=== PATIENT | male | born 1990 | race Caucasian/White ===

== ENCOUNTER 2024-08-31 18:23 | Emergency (ER) | payer BC, SELFPAY ==
[2024-08-31 18:24] VITALS: BP 150/101
[2024-08-31] MEDS: ZOFRAN 4 MG IV (19:57)
[2024-08-31] MEDS: NSS 1000 IV (19:57)
[2024-08-31 20:00] VITALS: BP 136/87
[2024-08-31 20:04] LABS: % Basophils 0.7 % (0-2); % Eosinophils 0.9 % (0-6); % Immature Granulocytes 0.2 % (0-0.5); % Lymphocytes 35.4 % (20.5-51.1); % Monocytes 7.8 % (1.7-9.3); Absolute Basophils 0.1 10^3/uL (0-0.2); Absolute Eosinophils 0.1 10^3/uL (0-0.7); Absolute Lymphocytes 3.1 10^3/uL (1.2-3.4); Absolute Monocytes 0.7 10^3/uL (0.1-0.6); Absolute Neutrophils 4.8 10^3/uL (1.4-6.5); Hematocrit 49.3 % (39.0-52.0); Hemoglobin 18.1 g/dL (13.0-18.0); Mean Corp Hgb Conc. 36.7 g/dL (33.0-37.0); Mean Corpuscular Hgb 33.5 pg (27.0-31.0); Mean Corpuscular Volume 91.3 fL (80.0-94.0); Mean Platelet Volume 8.4 fL (7.4-10.4); Nucleated Red Blood Cells % 0 % (-); Platelet Count 284 10^3/uL (130-400); Red Cell Dist. Width 12.3 % (11.5-14.5); White Blood Cell Count 8.7 10^3/uL (4.8-10.8)
--- NOTE | 2024-08-31 20:06 | ED.GENMED ---
History of Present Illness
<JERRY Dow - Last Filed: 08/31/24 21:42>
General
Chief Complaint: Abdominal Symptoms
Source: patient
Time Seen by Provider: 08/31/24 18:50
History of Present Illness
History of Present Illness:
This is a 34 y/o M with no significant PMH who presents with nausea, vomiting and diarrhea that began today. He initially presented with his , who is exhibiting similar symptoms. He vomited in the parking lot and was encouraged to also be seen.
They both ate breakfast sandwiches this morning but cannot think of any food that may have triggered this. He denies fevers, sore throat, shortness of breath, chest pain, hematochezia. He denies sick contacts. No recent travel. He smokes daily.
Past History
<JERRY Dow - Last Filed: 08/31/24 21:42>
Past History
ED Past Medical History: Other (Concussion)
ED Past Surgical History: Orthopedic (Jaw surgery, Left knee surgery X 2, Right hand surgery)
Social History
Tobacco: Smoker
Alcohol: Daily (Gin 5 glasses)
Drug: None
Personal:
Living: with family
Review of Systems
<JERRY Dow - Last Filed: 08/31/24 21:42>
Review of Systems
Constitutional: Reports no symptoms
EENT: Reports no symptoms
Respiratory: Reports no symptoms
Cardiac: Reports no symptoms
ABD/GI: Reports abdominal pain, nausea, vomiting and diarrhea
: Reports no symptoms
Musculoskeletal: Reports no symptoms
Skin: Reports no symptoms
Neurological: Reports no symptoms
Phy Exam
<JERRY Dow - Last Filed: 08/31/24 21:42>
General Physical Exam
General Presentation: well appearing and no apparent distress
General age: appears stated age
General Skin: warm and flushed
General Habitus: normal
General Mental: alert
Cardiovascular Exam
Cardiovascular Exam: regular rate/rhythm
Pulmonary Exam
Pulmonary Exam: lungs clear
Gastrointestinal Exam
Gastrointestinal Exam: normal bowel sounds, soft, non distended and tender (tender to palpitation in LUQ)
Palpation: left upper quadrant: Mild tenderness
<Usman Mayen DO - Last Filed: 08/31/24 22:41>
Physical Exam
Physical Exam:
Physical Exam
General: Nontoxic male vomiting
Neck: No jaundice
Heart: s1/s2 regular rate and rhythm, no murmur. equal radial pulses.
Lungs: no acute respiratory distress. clear bilaterally
Abdomen: Nontender
Neuro: alert and oriented. no focal neurological deficits
Skin: no rash
Psychiatric: well kept. interactive and cooperative
Extremities: no edema.
Course
<Renee Manrique STPA - Last Filed: 08/31/24 21:42>
Orders/Labs/Results
Orders:
Orders
08/31/24 19:38
IV Insert/Care/Rem.- Treatment PRN
0.9% Sodium Chloride 1000 ml [Nss] 1,000 ml IV BOLUS
0.9% Sodium Chloride 1000 ml [Nss] 1,000 ml IV BOLUS
Ondansetron Injectable [Zofran] 4 mg IV NOW STA
08/31/24 19:39
Ondansetron Injectable [Zofran] 4 mg .ROUTE .STK-MED ONE
08/31/24 19:57
Complete Blood Count/With Diff Urgent
Comprehensive Metabolic Panel Urgent
Lipase Urgent
Abnormal Lab Results
08/31/24
19:57
Hgb 18.1 H g/dL
(13.0-18.0)
MCH 33.5 H pg
(27.0-31.0)
Absolute Monos (auto) 0.7 H 10^3/uL
(0.1-0.6)
Total Bilirubin 1.6 H mg/dl
(0.2-1.3)
08/31/24 19:57
08/31/24 19:57
Vital Signs
Initial and Last Documented VS:
Initial Vital Signs
Temp Pulse Resp BP Pulse Ox
98.0 F 92 20 150/101 99
08/31/24 18:24 08/31/24 18:24 08/31/24 18:24 08/31/24 18:24 08/31/24 18:24
Last Documented Vital Signs
Temp Pulse Resp BP Pulse Ox
98.0 F 82 16 112/73 98
08/31/24 18:24 08/31/24 21:51 08/31/24 21:51 08/31/24 21:51 08/31/24 21:51
<Usman Mayen, DO - Last Filed: 08/31/24 22:41>
Orders/Labs/Results
Orders:
Orders
08/31/24 19:38
IV Insert/Care/Rem.- Treatment PRN
0.9% Sodium Chloride 1000 ml [Nss] 1,000 ml IV BOLUS
0.9% Sodium Chloride 1000 ml [Nss] 1,000 ml IV BOLUS
Ondansetron Injectable [Zofran] 4 mg IV NOW STA
08/31/24 19:39
Ondansetron Injectable [Zofran] 4 mg .ROUTE .STK-MED ONE
08/31/24 19:57
Complete Blood Count/With Diff Urgent
Comprehensive Metabolic Panel Urgent
Lipase Urgent
Abnormal Lab Results
08/31/24
19:57
Hgb 18.1 H g/dL
(13.0-18.0)
MCH 33.5 H pg
(27.0-31.0)
Absolute Monos (auto) 0.7 H 10^3/uL
(0.1-0.6)
Total Bilirubin 1.6 H mg/dl
(0.2-1.3)
08/31/24 19:57
08/31/24 19:57
Vital Signs
Initial and Last Documented VS:
Initial Vital Signs
Temp Pulse Resp BP Pulse Ox
98.0 F 92 20 150/101 99
08/31/24 18:24 08/31/24 18:24 08/31/24 18:24 08/31/24 18:24 08/31/24 18:24
Last Documented Vital Signs
Temp Pulse Resp BP Pulse Ox
98.0 F 82 16 112/73 98
08/31/24 18:24 08/31/24 21:51 08/31/24 21:51 08/31/24 21:51 08/31/24 21:51
<JERRY Dow - Last Filed: 08/31/24 21:42>
MDM/Problems Addressed
MDM/Problems Addressed:
This is a 34 y/o M with no significant PMH who presents with nausea, vomiting and diarrhea that began today. His has similar symptoms. No recent travel or sick contacts. After IV fluids and zofran patient states he is feeling better. Reassesed
the patient, he remains afebrile and hemodynamically stable. Abdomen soft and nontender. Able to tolerate PO liquids.
<Usman Mayen DO - Last Filed: 08/31/24 22:41>
MDM/Problems Addressed
Differential Diagnosis Includes:
Enteritis viral syndrome
<Usman Mayen DO - Last Filed: 08/31/24 22:41>
*Pulse Oximetry
Patient hypoxic: no
Comment: 99
*Critical Care Note
Total Time (30-74mins, 75-104mins- exclusive of procedures): Not Applicable
ED Attending Note
<JERRY Dow - Last Filed: 08/31/24 21:42>
-
Portions of this chart may have been created with voice recognition software.� Occasional wrong word or��sound alike� substitutions may have occurred due to the inherent limitations of voice recognition software.
<Usman Mayen DO - Last Filed: 08/31/24 22:41>
ED Attending Note
I performed a history and physical exam of patient and discussed management with resident, I reviewed resident's note and agree with documented findings and plan of care.: Yes
ED Attending Note:
Seen with student examined independently, 34-year-old male limited past medical history does drink and smoke he and his are here this evening with nausea vomiting diarrhea, vomiting here nontender abdomen, plan will be IV fluids antiemetics
screening blood work, serial abdominal exams
Discharge Plan
Departure
Patient Disposition: Home (Routine Discharge)
Date of Disposition: 08/31/24
Time of Disposition: 21:32
Patient with high blood pressure during this ER visit?: No
Condition: Good
Covid-19: Not Applicable
Discharge Problem:
Acute dehydration
Instructions: Diarrhea in teens and adults, Dehydration, Adult (DC), Nausea and Vomiting, Adult (DC)
Prescriptions:
New
ondansetron 4 mg tablet,disintegrating
4 mg PO Q8H PRN (Reason: nausea and vomiting) Qty: 14 0RF
No Action
pantoprazole [Protonix] 40 mg tablet,delayed release (DR/EC)
40 mg PO DAILY Qty: 10 0RF
Referrals:
UNKNOWN - PT DOES,NOT KNOW [Family Provider]
Interventions
Interventions:
*Risk Screen - Suicide Last Done: 08/31/24 18:24
*General Assessment Last Done: 08/31/24 18:24
*Neglect/Abuse Screening Last Done: 08/31/24 21:00
*ED- Fall Risk Assessment Last Done: 08/31/24 21:00
*ED COVID-19 Vaccine History Last Done: 08/31/24 21:00
*Nursing Disposition Last Done: 08/31/24 21:52
[id number] Assessment Last Done: 08/31/24 20:58
Discharge Date and Time
Discharge Date/Time: 08/31/24 21:55
Print Language: SPANISH
[2024-08-31 20:23] LABS: ALT (SGPT) 31 U/L (0-50); AST (SGOT) 30 U/L (17-59); Albumin 4.8 g/dl (3.5-5.0); Alkaline Phosphatase 80 U/L (38-126); Blood Urea Nitrogen 17 mg/dl (9-20); Calcium 10.1 mg/dl (8.4-10.2); Carbon Dioxide 24 mmol/L (22-30); Chloride 105 mmol/L (98-107); Glucose 90 mg/dl (70-99); Lipase 88 U/L (23-300); Potassium 4.1 mmol/L (3.5-5.1); Sodium 142 mmol/L (135-145); Total Bilirubin 1.6 mg/dl (0.2-1.3); Total Protein 7.7 g/dl (6.3-8.2); eGFR > 60.00
[2024-08-31 21:00] VITALS: BP 126/91
[2024-08-31 21:51] VITALS: BP 112/73
== END 2024-08-31 21:55 | disposition home or self-care (01) ==
LOC: EMR 18:23
PROVIDERS: EMERGENCY PHYSICIAN Emergency Medicine
DX: E86.0 Dehydration (principal); R11.2 Nausea with vomiting, unspecified; R19.7 Diarrhea, unspecified; F17.200 Nicotine dependence, unspecified, uncomplicated
CPT/HCPCS: 99284; 96374; 80053; 83690; 85025